=== PATIENT | female | born 1980 | race Hispanic/Latino ===

== ENCOUNTER 2023-10-04 10:54 | Emergency (ER) | payer OTHER, BC ==
[~2023-10-04] VITALS: Ht 172.7 cm; Wt 86.2 kg
[2023-10-04] MEDS ORDERED: CYCL10TA16 PO (12:57)
[2023-10-04] MEDS ORDERED: MELO-106 PO (12:57)
[2023-10-04 13:14] VITALS: BP 119/82; PULSE 85; RESP 16; O2SAT 98
== END 2023-10-04 13:17 | disposition home or self-care (01) ==
LOC: EDH 10:54
DX: S16.1XXA Strain of muscle, fascia and tendon at neck level, initial encounter (principal); R07.9 Chest pain, unspecified; M47.9 Spondylosis, unspecified; Z79.899 Other long term (current) drug therapy; Z98.890 Other specified postprocedural states; V89.2XXA Person injured in unspecified motor-vehicle accident, traffic, initial encounter; Y93.I9 Activity, other involving external motion; Y92.488 Other paved roadways as the place of occurrence of the external cause; Y99.8 Other external cause status
CPT/HCPCS: 71045; 72040; 72050